=== PATIENT | male | born 1975 | race Caucasian/White ===

== ENCOUNTER 2019-10-02 10:44 | Emergency (ER) | payer BC, SELFPAY ==
[2019-10-02 11:11] VITALS: BP 126/81; PULSE 73; RESP 18; TEMP 37.3; O2SAT 99
--- NOTE | 2019-10-02 11:41 | ED.URI ---
HPI - URI/Sore Throat General Chief Complaint: Upper Respiratory Infection Stated Complaint: nasal drainage/cough Time Seen by Provider: 10/02/19 11:48 Source: patient and family History of Present Illness HPI Narrative: Patient presents with a two-week history of sinus congestion and pressure. Patient states 1 week ago he started with a cough dry productive cough. Patient denies any shortness of breath no chest pain. Patient is a pack-a-day smoker for many years. Patient does not take anything [id number] for his symptoms. Patient does request a work note he took off today to come to the doctor. MD elicited complaint: cough, nasal congestion and sinus pain Related Data Allergies Allergy/AdvReac Type Severity Reaction Status Date / Time No Known Allergies Allergy Verified 10/02/19 11:29 Review of Systems Review of Systems: Narrative: CONSTITUTIONAL: Denies chills, or sweats. Reports fever and generalized body aches EYES: Denies visual changes, redness, or discharge. ENT: Denies otalgia. Reports nasal congestion runny nose and sore throat CARDIOVASCULAR: Denies chest pain, palpitations, or edema. RESPIRATORY: Denies dyspnea. Reports occasional cough GASTROINTESTINAL: Denies abdominal pain, nausea, vomiting, or diarrhea. GENITOURINARY: Denies dysuria or hematuria. SKIN: Denies rash or itching. MUSCULOSKELETAL: Denies back pain, joint pain, or myalgia. Reports generalized body aches NEUROLOGIC: Denies headache, numbness, or weakness. PSYCHIATRIC: Denies anxiety or depression. Exam Narrative: Exam Narrative: The patient is a well-developed, well-nourished in no acute distress. SKIN: Skin is warm and dry without erythema, swelling or exudate. There is good turgor. No tenting. HEAD: Atraumatic. Normocephalic. No temporal or scalp tenderness. EYES: Moist and bright. Sclera and conjunctivae normal. No discharge. PERRLA. Extraocular motions intact. Gross visual acuity intact. EARS: Pinna is normal shape and contour. Clear external auditory canals. TM pearly mcclure with good cone of light, no erythema or suppuration. Bilateral cerumen noted no gross hearing deficit. NOSE: pink, moist mucosa with good air movement. Clear rhinorrhea without nasal flaring. Septum midline. Moderate maxillary sinus pressure mild postnasal drainage Mouth: moist mucous membranes. THROAT; mild erythema noted to posterior oropharynx with moderate postnasal drainage. Without exudate or ulceration.. Uvula midline. Normal movement of soft palate. NECK: Supple and nontender with full range of motion without discomfort. No meningeal signs. LUNGS: Equal and bilateral breath sounds without wheezes, rales or rhonchi. CHEST: The chest wall is without retractions or use of accessory muscles. HEART: Has a regular rate and rhythm without murmur, gallops, click or rub. ABDOMEN: Soft, nontender with positive active bowel sounds. No rebound tenderness. EXTREMITIES: Without cyanosis, clubbing or edema. Equal 2+ distal pulses and 2 second capillary refill noted. NEUROLOGIC: alert, active, . The patient moves all extremities with normal muscle strength. Normal muscle tone is noted. Normal coordination is noted. NO focal neurological findings noted. Course Vital Signs Vital signs: Vital Signs Temperature 37.3 C 10/02/19 11:11 Pulse Rate 73 10/02/19 11:11 Respiratory Rate 18 10/02/19 11:11 Blood Pressure 126/81 10/02/19 11:11 Pulse Oximetry 99 10/02/19 11:11 Temperature 37.3 C 10/02/19 11:11 Pulse Rate 73 10/02/19 11:11 Respiratory Rate 18 10/02/19 11:11 Blood Pressure 126/81 10/02/19 11:11 Pulse Oximetry 99 10/02/19 11:11 Addressed elevated BP today. Today's blood pressure higher than recommended range. Discussed importance of follow -up with PCP and possible rat exterminator effects/cardiovascular events related to HTN. Currently patient denies headache, dizziness, vision changes, CP or shortness of breath. MDM - URI/Sore Throat Differential
== END 2019-10-02 11:53 | disposition home or self-care (01) ==
PROVIDERS: Emergency Provider Nurse Practitioner Family
DX: J40 Bronchitis, not specified as acute or chronic (principal); J32.9 Chronic sinusitis, unspecified
CPT/HCPCS: 99213; G0463

== ENCOUNTER 2019-10-04 13:56 | Emergency (ER) | payer BC, SELFPAY ==
[2019-10-04 14:13] VITALS: BP 140/88; PULSE 83; RESP 16; TEMP 37.4; O2SAT 99
--- NOTE | 2019-10-04 15:15 | ED.URI ---
HPI - URI/Sore Throat General Chief Complaint: Upper Respiratory Infection Stated Complaint: Cough/Sore Throat Time Seen by Provider: 10/04/19 15:15 Source: patient and RN notes reviewed Mode of arrival: ambulatory Limitations: no limitations History of Present Illness HPI Narrative: 44-year-old male who presents to [facility] accompanied by son with request to be screened for influenza. Patient states that mother of child was just recently diagnosed with flu. Patient states he was seen here 3 days ago and diagnosed with bronchitis and sinusitis taking prescribed medications as ordered, states some improvement in his symptoms. Patient states that he still has cough but breathing has improved with no wheezing noted upon auscultation, SAO2 99% on room air. Patient states that his sinus congestion and drainage has also improved with low grade fever noted. Did not have flu vaccine this season. MD elicited complaint: cough and rhinorrhea Pertinent past history: other (bronchitis) Onset (ago): week(s) (initially symptoms 2 weeks ago, cough 1 week ago, seen 3 dys ago) Consistency: improved Severity: mild Description of mucous: clear Able to tolerate fluids by mouth: Yes Exacerbating factors: nothing Relieving factors: other (taking antibiotic, inhaler and steroids) Context: sick contacts Associated symptoms: rhinorrhea, nasal congestion, cough and other (wheezing has decreased) Treatments prior to arrival: antibiotics and other (steroids and inhalers) Related Data Home Medications Medication Instructions Recorded Confirmed albuterol sulfate 2 puff INHALATION QID 10/04/19 10/04/19 prednisone 40 mg PO DAILY 10/04/19 10/04/19 Allergies Allergy/AdvReac Type Severity Reaction Status Date / Time No Known Allergies Allergy Verified 10/04/19 14:31 Review of Systems Review of Systems: Narrative: CONSTITUTIONAL: Low grade temperature, no chills, or sweats. EYES: Denies visual changes, redness, or discharge. ENT: positive rhinorrhea, congestion, no sore throat, or otalgia. CARDIOVASCULAR: Denies chest pain, palpitations, or edema. RESPIRATORY: Positive cough denies dyspnea presently; wheezing has decreased since started on inhaler, antibiotics, and steroids. GASTROINTESTINAL: Denies abdominal pain, nausea, vomiting, or diarrhea. GENITOURINARY: Denies dysuria or hematuria. SKIN: Denies rash or itching. MUSCULOSKELETAL: Denies back pain, joint pain, or myalgia. NEUROLOGIC: Denies headache, numbness, or weakness. PSYCHIATRIC: Denies anxiety or depression. All systems reviewed & are unremarkable except as noted in HPI and below PMFSH Past Medical History Medical History (Updated 10/05/19 @ 00:00 by Keyla Wilcox) Bronchitis Left hand fracture Sinusitis Surgical History Surgical History (Updated 10/04/19 @ 16:00 by Dariela Chao NP) History of placement of ear tubes Social History Social History (Updated 10/04/19 @ 15:59 by Dariela Chao NP) Smoking packs per day: 1 Smoking cigarettes per day: 20.0 Years smoked: 25 Smoking pack-years: 25.00 Smoking status: Current every day smoker Tobacco type: cigarettes Living arrangements: with family Gender identity (if verbalized by the patient): Male Comments At time of signature agree with nursing documentation of medical and social history. There is no relevant family history pertinent to preseting complaint. Exam Narrative: Exam Narrative: GENERAL: Well-appearing, well-nourished, and in no acute distress. HEAD: Normocephalic, atraumatic. EYES: PERRLA and EOMI. ENT: Nares red, clear rhinorrhea or epistaxis. Mucous membranes moist.TM's normal with good light reflex, throat pink NECK: Supple.no lymphadenopathy CHEST: Clear to auscultation. No respiratory distress.SAO2 99% on room air HEART: Regular rate and rhythm. No murmur heard. Normal peripheral pulses. ABDOMEN: Soft, non tender, non distended, normal active bowel sounds. EXTREMITIES: Normal range of
== END 2019-10-04 15:36 | disposition home or self-care (01) ==
PROVIDERS: Emergency Provider Registered Nurse
DX: J40 Bronchitis, not specified as acute or chronic (principal); F17.210 Nicotine dependence, cigarettes, uncomplicated
CPT/HCPCS: 87804; 99212; G0463

== ENCOUNTER 2020-10-08 16:37 | Emergency (ER) | payer OTHER, SELFPAY ==
[2020-10-08 16:42] VITALS: BP 132/72; PULSE 88; RESP 16; TEMP 37.5; O2SAT 99
--- NOTE | 2020-10-08 17:13 | ED.ABDPAIN ---
HPI - Abdominal Pain General Chief Complaint: Abdominal Pain Stated Complaint: stomach problems diahhrea Time Seen by Provider: 10/08/20 17:14 Source: patient and RN notes reviewed Mode of arrival: ambulatory Limitations: no limitations History of Present Illness HPI narrative: 45-year-old male presents with complaints of diffuse abdominal pain and diarrhea for 1 day. Ender reports on 10/07/20 believes he at a half cooked pizza from a local store causing his symptoms, symptoms subside later in the am of 10/08/20 after the start of his shift. Ender reports he called off work and needs a note to return. Increased fluids with relief. Denies nausea, vomiting, or abdominal pain currently. Exacerbating factors consist of eating and drinking. LBM approximately 10:00 am liquid stool without blood. Denies fever. Denies headache, dizziness, back pain, dysuria, and blood in stool. Tolerating po intake well. Remains active. The patient reports he have not been diagnosed with COVID-19. The patient reports he is not waiting for the results of a COVID-19 lab test. The patient reports he do not have chills, weakness, or fatigue. The patient reports he do not have a new or worsening cough or shortness of breath. Denies chest pain. The patient reports he do not have any rhinorrhea, congestion, loss of taste or smell, and sore throat. Denies recent traveling. Denies concerns for COVID-19 or exposures been home with limited outdoor exposure except for essential household needs, work, and return home. At this time, patient is not suspected of having COVID-19. Some parts of this dictation were generated by voice recognition software and may contain typographical and/or grammatical inaccuracies. Related Data Home Medications Medication Instructions Recorded Confirmed No Home Medications 10/08/20 10/08/20 Allergies Allergy/AdvReac Type Severity Reaction Status Date / Time No Known Allergies Allergy Verified 10/08/20 16:54 Review of Systems Review of Systems: Narrative: CONSTITUTIONAL: Denies fever, chills, sweats. EYES: Denies visual changes, redness, discharge. ENT: Denies rhinorrhea, congestion, sore throat, otalgia. CARDIOVASCULAR: Denies chest pain, palpitations, edema. RESPIRATORY: Denies dyspnea, wheezing, cough. GASTROINTESTINAL: Denies vomiting, nausea, and decrease appetite. Complains of watery diarrhea, diffused abdominal pain-subsided. GENITOURINARY: Denies dysuria, hematuria, abnormal discharge. SKIN: Denies rash or itching. MUSCULOSKELETAL: Denies acute back pain, joint pain, or myalgia. NEUROLOGIC: Denies numbness or focal weakness. PSYCHIATRIC: Denies anxiety or depression. All systems reviewed & are unremarkable except as noted in HPI and below. [facility] Past Medical History Medical History (Updated 10/09/20 @ 00:00 by Keyla Wilcox) Bronchitis Kidney stones Left hand fracture Lung abnormality punctured lung due to fracture ribs Sinusitis Surgical History Surgical History (Updated 10/08/20 @ 17:30 by STEVEN Smith) History of placement of ear tubes History of tonsillectomy Family History Family History (Updated 10/08/20 @ 17:31 by STEVEN Smith) Father Heart disease Mother Liver cancer Social History Social History (Updated 10/08/20 @ 17:32 by STEVEN Smith) Smoking packs per day: 1 Smoking cigarettes per day: 20.0 Years smoked: 27 Smoking pack-years: 27.00 Smoking status: Current every day smoker Tobacco type: cigarettes Second hand tobacco smoke exposure: Yes (spouse) Alcohol intake: current Substance use: current Substance use type: marijuana Living arrangements: with family Occupation/Education: occupation Gender identity (if verbalized by the patient): Male Sexual Orientation (if Verbalized by the Patient): Straight or Heterosexual Comments At time of signature, I have reviewed and agree with keisha
== END 2020-10-08 17:28 | disposition home or self-care (01) ==
PROVIDERS: Emergency Provider Nurse Practitioner Family
DX: K52.9 Noninfective gastroenteritis and colitis, unspecified (principal); F17.210 Nicotine dependence, cigarettes, uncomplicated
CPT/HCPCS: 99211; G0463

== ENCOUNTER 2021-01-07 12:28 | Emergency (ER) | payer OTHER, SELFPAY ==
--- NOTE | ~2021-01-07 | XR_ITS ---
EXAMINATION: XR chest 2V 01/07/2021 12:57 INDICATION: Chest pain for 2 days PROCEDURE: 2 view chest COMPARISON: 02/27/2019 FINDINGS: The lungs are clear. The lungs are hyperinflated which is consistent with, but not diagnost ic of chronic obstructive pulmonary disease. The cardiomediastinal silhouette is within normal limit s. There are no pleural effusions. There is no pneumothorax suspected. IMPRESSION: 1: NO ACUTE CARDIOPULMONARY DISEASE. Reviewed, dictated and finalized at location A.
[2021-01-07 12:35] VITALS: BP 135/95; PULSE 90; RESP 20; TEMP 36.9; O2SAT 100
--- NOTE | 2021-01-07 12:35 | ED.URI ---
HPI - URI/Sore Throat General Chief Complaint: Chest Pain Stated Complaint: Chest pain,shortness of breathe Time Seen by Provider: 01/07/21 12:35 Source: patient and RN notes reviewed History of Present Illness HPI Narrative: Patient is a 45-year-old male who presents the urgent care with complaints of right-sided chest pain for 2 days. Patient states that his shortness of breath on exertion has been ongoing for approximately 2 to 3 years and he has not followed up with a primary care doctor. Patient states that the same exact episode happened last year when his and him got into an argument and he was under a lot of stress at work. Patient states that he has been arguing with his for the last 4 days and now the chest pain is back . Patient has not taken anything for his symptoms. States that 1 year ago when this episode happened he went to the emergency room and was evaluated overnight without any significant findings. Patient states that the doctor told him it was stress and anxiety and patient was not given any medications. Patient denies of any vision changes, radiation of the chest pain, headache, palpitations. Denies of any recent fevers or productive cough. No other acute complaints. No acute distress noted. Patient aware of the plan of care. Some parts of this dictation were generated by voice recognition software and may contain typographical and/or grammatical inaccuracies. Related Data Home Medications Medication Instructions Recorded Confirmed No Home Medications 10/08/20 10/08/20 Allergies Allergy/AdvReac Type Severity Reaction Status Date / Time No Known Allergies Allergy Verified 01/07/21 12:53 Review of Systems Review of Systems: Narrative: CONSTITUTIONAL: Denies fever, chills, or sweats. EYES: Denies visual changes, redness, or discharge. ENT: Denies rhinorrhea, congestion, sore throat, or otalgia. CARDIOVASCULAR: Reports of right-sided nonradiating chest pain RESPIRATORY: Denies cough or dyspnea. GASTROINTESTINAL: Denies abdominal pain, nausea, vomiting, or diarrhea. GENITOURINARY: Denies dysuria or hematuria. SKIN: Denies rash or itching. MUSCULOSKELETAL: Denies back pain, joint pain, or myalgia. NEUROLOGIC: Denies headache, numbness, or weakness. All other systems reviewed are negative, except as documented in HPI. [facility] Past Medical History Medical History (Updated 01/07/21 @ 13:26 by STEVEN Hendricks) Bronchitis Kidney stones Left hand fracture Lung abnormality punctured lung due to fracture ribs Sinusitis Surgical History Surgical History (Updated 10/08/20 @ 17:30 by STEVEN Smith) History of placement of ear tubes History of tonsillectomy Family History Family History (Updated 10/08/20 @ 17:31 by STEVEN Smith) Father Heart disease Mother Liver cancer Social History Social History (Updated 10/08/20 @ 17:32 by STEVEN Smith) Smoking packs per day: 1 Smoking cigarettes per day: 20.0 Years smoked: 27 Smoking pack-years: 27.00 Smoking status: Current every day smoker Tobacco type: cigarettes Second hand tobacco smoke exposure: Yes (spouse) Alcohol intake: current Substance use: current Substance use type: marijuana Gender identity (if verbalized by the patient): Male Comments At the time of my signature, I reviewed and agree with the nursing past medical, surgical, social, and family history. There is no relevant family history pertinent to the patient complaint. Exam Narrative: Exam Narrative: GENERAL: This is a well-nourished, well-developed patient, in no apparent distress. HEAD: normocephalic, atraumatic. EYES: PERRL. Sclera clear/white. Vision is grossly intact. EARS: External ears normal, auditory canals clear and without drainage, TMs normal without perforation. Hearing grossly intact. NOSE: External nose normal with no obvious nasal discharge, nares without rednes
--- NOTE | 2021-01-07 12:49 | ECG_ITS ---
Measurements Intervals [place] Rate: 71 P: 69 NH: 161 QRS: 35 QRSD: 80 T: 41 QT: 360 QTc: 392 Interpretive Statements SINUS RHYTHM NORMAL ECG Electronically Signed On 01-07-2021 13:15:06 CDT by Kareem Horton D.O.
== END 2021-01-07 13:30 | disposition left against medical advice (07) ==
PROVIDERS: Emergency Provider Nurse Practitioner Family
DX: R07.9 Chest pain, unspecified (principal); F17.210 Nicotine dependence, cigarettes, uncomplicated
CPT/HCPCS: 71046; 93005; 99213; G0463

== ENCOUNTER 2021-04-12 10:42 | Emergency (ER) | payer OTHER, SELFPAY ==
[2021-04-12 10:48] VITALS: BP 125/82; PULSE 75; RESP 20; TEMP 36.8; O2SAT 100
--- NOTE | 2021-04-12 11:35 | ED.URI ---
HPI - URI/Sore Throat General Chief Complaint: Upper Respiratory Infection Stated Complaint: congestion drainage Time Seen by Provider: 04/12/21 11:27 Source: patient and RN notes reviewed Mode of arrival: ambulatory Limitations: no limitations History of Present Illness HPI Narrative: Patient presents today complaining of cough, sore throat, rhinorrhea, postnasal drainage for 1-1/2 days. Denies fever or shortness of breath. He has taken 1 dose of Mucinex without relief. States his employer sent him here for rapid COVID-19 test so he can return to work. MD elicited complaint: cough and sore throat Related Data Home Medications Medication Instructions Recorded Confirmed No Home Medications 10/08/20 04/12/21 Allergies Allergy/AdvReac Type Severity Reaction Status Date / Time No Known Allergies Allergy Verified 04/12/21 11:07 Review of Systems Review of Systems: CONSTITUTIONAL: Denies body aches, fever, chills, or sweats. EYES: Denies visual changes, redness, or discharge. ENT: Denies congestion,or otalgia.+ Sore throat, rhinorrhea, postnasal drip CARDIOVASCULAR: Denies chest pain, palpitations, or edema. RESPIRATORY: Denies dyspnea.+ Cough GASTROINTESTINAL: Denies abdominal pain, nausea, vomiting, or diarrhea. GENITOURINARY: Denies dysuria or hematuria. SKIN: Denies rash, itching, or wounds. MUSCULOSKELETAL: Denies back pain, joint pain, or myalgia. NEUROLOGIC: Denies headache, numbness, tingling, or weakness. PSYCH: Denies depression or anxiety. PENDING SALE TO [facility] Past Medical History Medical History Bronchitis Kidney stones Left hand fracture Lung abnormality punctured lung due to fracture ribs Sinusitis Surgical History Surgical History History of placement of ear tubes History of tonsillectomy Family History Family History Father Heart disease Mother Liver cancer Social History Social History Smoking packs per day: 1 Smoking cigarettes per day: 20.0 Years smoked: 27 Smoking pack-years: 27.00 Smoking status: Current every day smoker Tobacco type: cigarettes Second hand tobacco smoke exposure: Yes (spouse) Alcohol intake: current Substance use: current Substance use type: marijuana Gender identity (if verbalized by the patient): Male Sexual Orientation (if Verbalized by the Patient): Straight or Heterosexual Comments At time of signature, I have reviewed and agree with nursing past medical, surgical, social and family history unless otherwise noted. Please see nursing chart for further information. There is no relevant family history pertinent to the presenting complaint Exam Narrative: GENERAL: Mildly ill-appearing, well-nourished, and in no acute distress. HEAD: Normocephalic, atraumatic. EYES: EOMI. No redness or drainage. Conjunctivae normal. ENT: Mucous membranes pink and moist. Nares congested with rhinorrhea. TMs normal bilaterally. Throat normal. Uvula midline. NECK: Normal AROM. Supple. No lymphadenopathy. CHEST: No respiratory distress. Clear to auscultation. HEART: Regular rate and rhythm. No murmur appreciated. Normal peripheral pulses. EXTREMITIES: Normal range of motion. No edema. SKIN: Warm, dry, no rash. Capillary refill normal. Normal skin turgor. NEURO: No focal deficits. Alert and oriented x3. Gait steady. PSYCH: Normal affect. No signs of depression or anxiety. Course Course Emergency Course: Discussed with patient that he has not had symptoms for long enough for the rapid COVID-19 test to be accurate, so I would not be ordering that test for him today. I will order PCR test for him. Vital Signs Vital signs: Vital Signs Temperature 98.3 F 04/12/21 10:48 Pulse Rate 75 04/12/21 10:4
[2021-04-13 18:19] LABS: SARS-CoV-2 RNA PCR Negative
== END 2021-04-12 11:49 | disposition home or self-care (01) ==
PROVIDERS: Emergency Provider Nurse Practitioner
DX: J06.9 Acute upper respiratory infection, unspecified (principal); F17.210 Nicotine dependence, cigarettes, uncomplicated; Z20.822 Contact with and (suspected) exposure to COVID-19
CPT/HCPCS: 87081; 87880; 99213; C9803; G0463; U0003; U0005

== ENCOUNTER 2021-04-27 16:12 | Emergency (ER) | payer OTHER, SELFPAY ==
[2021-04-27 16:28] VITALS: BP 135/78; PULSE 77; RESP 14; TEMP 36.7; O2SAT 100
--- NOTE | 2021-04-27 17:55 | ED.SKABFB ---
HPI - Skin/Abscess/Foreign Bdy General Chief complaint: Skin/Abscess/Foreign Body Stated complaint: Rash Time Seen by Provider: 04/27/21 17:48 Source: patient and RN notes reviewed Mode of arrival: ambulatory Limitations: no limitations History of Present Illness HPI narrative: Patient presents today complaining of a rash to the dorsum of right hand and bilateral forearms x1 week. Patient states it itches profusely and has been spreading. States the area started out as a small pustule, ruptured with clear fluid then turned into a scab. He has not tried any [id number] interventions prior to arrival. MD complaint: rash Related Data Allergies Allergy/AdvReac Type Severity Reaction Status Date / Time No Known Allergies Allergy Verified 04/27/21 17:10 Review of Systems Review of Systems: CONSTITUTIONAL: Denies body aches, fever, chills, or sweats. EYES: Denies visual changes, redness, or discharge. ENT: Denies rhinorrhea, congestion, sore throat, or otalgia. CARDIOVASCULAR: Denies chest pain, palpitations, or edema. RESPIRATORY: Denies cough or dyspnea. GASTROINTESTINAL: Denies abdominal pain, nausea, vomiting, or diarrhea. GENITOURINARY: Denies dysuria or hematuria. SKIN: Denies wounds.+ Pruritic rash MUSCULOSKELETAL: Denies back pain, joint pain, or myalgia. NEUROLOGIC: Denies headache, numbness, tingling, or weakness. PSYCH: Denies depression or anxiety. [facility] Past Medical History Medical History Bronchitis Kidney stones Left hand fracture Lung abnormality punctured lung due to fracture ribs Sinusitis Surgical History Surgical History History of placement of ear tubes History of tonsillectomy Family History Family History Father Heart disease Mother Liver cancer Social History Social History Smoking packs per day: 1 Smoking cigarettes per day: 20.0 Years smoked: 27 Smoking pack-years: 27.00 Smoking status: Current every day smoker Tobacco type: cigarettes Second hand tobacco smoke exposure: Yes (spouse) Alcohol intake: current Substance use: current Substance use type: marijuana Gender identity (if verbalized by the patient): Male Sexual Orientation (if Verbalized by the Patient): Straight or Heterosexual Comments At time of signature, I have reviewed and agree with nursing past medical, surgical, social and family history unless otherwise noted. Please see nursing chart for further information. There is no relevant family history pertinent to the presenting complaint Exam Narrative: GENERAL: Well-appearing, well-nourished, and in no acute distress. HEAD: Normocephalic, atraumatic. EYES: EOMI. No redness or drainage. Conjunctivae normal. ENT: Mucous membranes pink and moist. NECK: Normal AROM. CHEST: No respiratory distress. EXTREMITIES: Normal range of motion. No edema. SKIN: Warm, dry. Capillary refill normal. Normal skin turgor. Scabbed papules covering the dorsum of the right hand and extending in a scattered distribution to the bilateral forearms. Scant yellow clear drainage from a few scabs to the right hand. NEURO: No focal deficits. Alert and oriented x3. Gait steady. PSYCH: Normal affect. No signs of depression or anxiety. Course Vital Signs Vital signs: Vital Signs Temperature 98.1 F 04/27/21 16:28 Pulse Rate 77 04/27/21 16:28 Respiratory Rate 14 04/27/21 16:28 Blood Pressure 135/78 04/27/21 16:28 Pulse Oximetry 100 04/27/21 16:28 Temperature 98.1 F 04/27/21 16:28 Pulse Rate 77 04/27/21 16:28 Respiratory Rate 14 04/27/21 16:28 Blood Pressure 135/78 04/27/21 16:28 Pulse Oximetry 100 04/27/21 16:28 Reviewed. Pt has been instructed to follow u
== END 2021-04-27 18:07 | disposition home or self-care (01) ==
PROVIDERS: Emergency Provider Nurse Practitioner
DX: L01.00 Impetigo, unspecified (principal); F17.210 Nicotine dependence, cigarettes, uncomplicated
CPT/HCPCS: 99213; G0463

== ENCOUNTER 2021-07-12 09:45 | Emergency (ER) | payer OTHER, SELFPAY ==
[2021-07-12 09:50] VITALS: BP 128/81; PULSE 73; RESP 18; TEMP 37.2; O2SAT 100
--- NOTE | 2021-07-12 10:03 | ED.BACK ---
HPI - Back Pain/Injury General Chief Complaint: Urogenital-Male Stated Complaint: Back Pain Time Seen by Provider: 07/12/21 10:03 Source: patient Mode of arrival: ambulatory Limitations: no limitations History of Present Illness HPI Narrative: Ender Johnson is a 46 yo male with no PMH [facility] left-sided flank discomfort he has-told nurse that it is an 8 out of 10. States that he has the pain when he stands or sits but goes away when he lays flat. Related Data Allergies Allergy/AdvReac Type Severity Reaction Status Date / Time No Known Allergies Allergy Verified 07/12/21 10:03 Review of Systems Review of Systems: CONSTITUTIONAL: Denies fever, chills, sweats. EYES: Denies visual changes, redness, discharge. ENT: Denies rhinorrhea, congestion, sore throat, otalgia. CARDIOVASCULAR: Denies chest pain, palpitations, edema. RESPIRATORY: Denies dyspnea, wheezing, cough GASTROINTESTINAL: Denies abdominal pain, nausea, vomiting, diarrhea. GENITOURINARY: Denies dysuria, hematuria, abnormal discharge SKIN: Denies rash or itching. NEUROLOGIC: Denies numbness, or focal weakness. PSYCHIATRIC: Denies anxiety or depression. Left flank discomfort, also painful with twisting to left PMFSH Past Medical History Medical History Bronchitis Kidney stones Left hand fracture Lung abnormality punctured lung due to fracture ribs Sinusitis Surgical History Surgical History History of placement of ear tubes History of tonsillectomy Family History Family History Father Heart disease Mother Liver cancer Social History Social History Smoking packs per day: 1 Smoking cigarettes per day: 20.0 Years smoked: 27 Smoking pack-years: 27.00 Smoking status: Current every day smoker Tobacco type: cigarettes Second hand tobacco smoke exposure: Yes (spouse) Alcohol intake: current Substance use: current Substance use type: marijuana Gender identity (if verbalized by the patient): Male Sexual Orientation (if Verbalized by the Patient): Straight or Heterosexual Comments At time of signature, I agree with nursing past medical, surgical, social and family history. There is no relevant family history pertinent to the presenting complaint. Exam Narrative: GENERAL: This is a well-nourished, well-developed patient, in mild distress. HEAD: normocephalic, atraumatic. EYES: Sclera clear/white. Vision is grossly intact. EARS: External ears normal, Hearing grossly intact. NOSE: External nose normal without nasal discharge, nares without redness, no rhinorrhea. THROAT: Mucous membranes moist, NECK: Neck supple, CARDIOVASCULAR: Regular rate and rhythm without murmurs, gallops, or rubs. RESPIRATORY: Clear to auscultation. Breath sounds equal bilaterally. No wheezes, rales, or rhonchi. GASTROINTESTINAL: Abdomen soft, and twisting to the left SKIN: warm, intact with no suspicious lesions or rash, good texture and turgor. NEURO: awake, alert, and oriented to person, place and time. There were no obvious focal neurologic abnormalities. Steady gait EXTREMITIES: Normal range of motion. BACK: Nontender without deformity Course Course Emergency Course: Patient comes with complaints of left-sided flank pain the right side runs a 10 particularly when standing or sitting Discussed going to his primary care physician-started on muscle relaxant and Cipro Vital Signs Vital signs: Vital Signs Temperature 98.9 F 07/12/21 09:50 Pulse Rate 73 07/12/21 09:50 Respiratory Rate 18 07/12/21 09:50 Blood Pressure 128/81 07/12/21 09:50 Pulse Oximetry 100 07/12/21 09:50 Temperature 98.9 F 07/12/21 09:50 Pulse Rate 73 07/12/21 09:50 Respiratory Rate 18
== END 2021-07-12 10:35 | disposition home or self-care (01) ==
PROVIDERS: Emergency Provider Nurse Practitioner
DX: R10.9 Unspecified abdominal pain (principal); F17.210 Nicotine dependence, cigarettes, uncomplicated
CPT/HCPCS: 81003; 99213; G0463

== ENCOUNTER 2021-09-30 11:21 | Emergency (ER) | payer OTHER, SELFPAY ==
--- NOTE | ~2021-09-30 | XR_ITS ---
EXAMINATION: XR chest 2V DATE: 09/30/2021 11:51 INDICATION: Chest pain TECHNIQUE: PA and lateral views of the chest are obtained. COMPARISON: 01/07/2021 FINDINGS: The lungs are free of acute opacities. There is no pleural effusion or pneumothorax. The ca rdiomediastinal silhouette is normal. There is moderate thoracic spondylosis. IMPRESSION: 1. No acute cardiopulmonary abnormality. Reviewed, dictated and finalized at location B. K OPERATOR
--- NOTE | 2021-09-30 11:24 | ECG_ITS ---
Measurements Intervals [place] Rate: 67 P: 64 PA: 142 QRS: 53 QRSD: 93 T: 46 QT: 354 QTc: 375 Interpretive Statements SINUS RHYTHM NORMAL ECG COMPARED TO ECG 01/07/2021 12:49:29 NO SIGNIFICANT CHANGES Electronically Signed On 09-30-2021 13:40:36 RESERVE OFFICER by Kaushal Dillard M.D.
[2021-09-30 11:39] VITALS: BP 148/100; PULSE 73; RESP 20; TEMP 36.7; O2SAT 100
[2021-09-30 11:43] LABS: Basophils Absolute Auto 0.07 K/mm3 (0.00-0.10); Basophils Percent Auto 0.8 % (0.0-1.0); Eosinophils Absolute Auto 0.05 K/mm3 (0.02-0.50); Eosinophils Percent Auto 0.6 % (1.0-6.0); Hematocrit 45.7 % (40.0-54.0); Hemoglobin 15.6 g/dL (14.0-18.0); Immature Granulocyte Absolute 0.03 K/mm3 (0.00-0.00); Immature Granulocyte Percent A 0.4 % (0.0-0.0); Lymphocytes Absolute Auto 1.66 K/mm3 (1.10-4.50); Lymphocytes Percent Auto 19.6 % (18.0-42.0); Mean Corpuscular HGB Conc 34.1 g/dL (32.0-36.0); Mean Corpuscular Hemoglobin 33.7 pg (27.0-31.0); Mean Corpuscular Volume 98.7 fL (78.0-102.0); Mean Platelet Volume 10.1 fl (8.7-11.0); Monocytes Absolute Auto 0.83 K/mm3 (0.10-0.90); Monocytes Percent Auto 9.8 % (2.0-11.0); Neutrophils Absolute Auto 5.8 K/mm3 (1.7-7.2); Neutrophils Percent Auto 68.8 % (50.0-70.0); Platelet Count Result 197 K/mm3 (150-420); Red Blood Count 4.63 M/mm3 (4.70-6.10); Red Cell Distribution Width 12.6 % (11.6-14.4); White Blood Count 8.5 K/mm3 (4.8-10.8)
--- NOTE | 2021-09-30 11:43 | ED.CHESTPAIN ---
HPI - Chest Pain General Chief Complaint: Chest Pain Stated Complaint: chest pain, palpitations Time Seen by Provider: 09/30/21 11:23 Source: patient Mode of arrival: ambulatory Limitations: no limitations History of Present Illness HPI narrative: this is a 46-year-old gentleman that presents with chest tightness that started earlier today, the patient also stated that he was having palpitations, there is no radiation of his pain no shortness of breath no diaphoresis no nausea vomiting no history of heart disease no family history of heart disease. Patient is a smoker, and this episode has happened in the past and he believes it is situational has been having marital issues. Saw his primary care physician had him set up to see Cardiology and started him on Zoloft, he took 4 doses of Zoloft and discontinued the medication. Currently patient appears comfortable his vital signs are stable. MD complaint: chest heaviness Pertinent past history: other ( history of anxiety) Onset (ago): hour(s) Timing of current episode: episodic and other ( situational) Prior episodes: Yes Pain location: substernal Pain radiation: none Severity: mild Quality: tightness Relieving factors: nothing Exacerbating factors: other ( stress) Related Data Allergies Allergy/AdvReac Type Severity Reaction Status Date / Time No Known Allergies Allergy Verified 09/30/21 11:47 Review of Systems Review of Systems: All systems reviewed & are unremarkable except as noted in HPI and below PMFSH Past Medical History Medical History Bronchitis Kidney stones Left hand fracture Lung abnormality punctured lung due to fracture ribs Sinusitis Surgical History Surgical History History of placement of ear tubes History of tonsillectomy Family History Family History Father Heart disease Mother Liver cancer Social History Social History Smoking packs per day: 1 Smoking cigarettes per day: 20.0 Years smoked: 27 Smoking pack-years: 27.00 Smoking status: Current every day smoker Tobacco type: cigarettes Second hand tobacco smoke exposure: Yes (spouse) Alcohol intake: current Substance use: current Substance use type: marijuana Gender identity (if verbalized by the patient): Male Sexual Orientation (if Verbalized by the Patient): Straight or Heterosexual Exam Const: General: no acute distress Orientation/consciousness: patient oriented x3 HENMT: Head: normal to inspection Eyes: Conjunctivae: conjunctivae normal Pupils: Equal, round and reactive pupils present Neck: Neck: normal visual inspection, no lymphadenopathy and no meningeal signs Chest: Chest palpation & inspection: normal inspection of the chest Resp: Effort & Inspection: normal respiratory effort Auscultation: clear to auscultation bilaterally Cardio: Rate: regular rate Rhythm: regular rhythm GI: Auscultation: normal bowel sounds : Testes: Testes normal Back/Spine/Pelvis: Back: no CVA tenderness Skin: General skin exam: normal color Rashes: no rashes Neuro: General: patient oriented x3 and moves all extremities Extrem: General: normal to inspection and no pedal edema Psych: Appearance: grossly normal Mental Status: mental status grossly normal Affect: Anxious affect present Attitude: cooperative Course Course Emergency Course: EKG reviewed, patient had a chest x-ray that was reviewed with patient as well as blood work, the patient received a dose of 0.5mg PO Xanax. MDM - Chest Pain Lab Data Result diagrams: 09/30/21 11:37 09/30/21 11:37 Labs: Lab Results 09/30/21 09/30/21 09/30/21 Range/Units 11:37 11:37 11:37 WBC Pending RBC Pending Hgb Pending
[2021-09-30] MEDS: ALPRAZolam (*CRX) 0.5 MG TABLET PO (11:52)
[2021-09-30 11:56] LABS: D Dimer 0.34 mg/L (0.19-0.50); Partial Thromboplastin Time 26.3 SEC (23.90-30.70); Prothrombin Time 10.4 Seconds (9.50-12.10)
[2021-09-30 12:05] LABS: Alanine Aminotransferase 10 U/L (16-63); Albumin Level 3.8 g/dL (3.4-5.0); Alkaline Phosphatase 81 U/L (46-116); Anion Gap 10 mmol/L (8-16); Aspartate Amino Transferase 12 U/L (15-37); Bilirubin,Total 0.3 mg/dL (0.00-1.00); Blood Urea Nitrogen 18 mg/dL (7-18); Calcium 8.7 mg/dL (8.5-10.1); Carbon Dioxide 26 mmol/L (21-32); Chloride 104 mmol/L (98-108); Estimated CRCL calculation 86 ml/min; Estimated Glomerular Filt Rate > 60; Glucose 109 mg/dL (70-99); Lipase 64 U/L (73-393); NT Pro B Type Natriuretic Pept 45 pg/mL (0-125); Osmolality Calculated 292 mOsm/kg (285-295); Sodium 140 mmol/L (136-145); Troponin I 7.4 ng/L (0.00-60.4)
[2021-09-30 12:35] VITALS: BP 112/91; PULSE 76; RESP 20; TEMP 36.8; O2SAT 97
== END 2021-09-30 12:37 | disposition home or self-care (01) ==
PROVIDERS: Emergency Provider Emergency Medicine
DX: R07.89 Other chest pain (principal); F41.9 Anxiety disorder, unspecified
CPT/HCPCS: 36415; 71046; 80053; 83690; 83880; 84484; 85025; 85380; 85610; 85730; 93005; 99284; A9270

== ENCOUNTER 2021-11-24 11:34 | Emergency (ER) | payer OTHER, SELFPAY ==
[2021-11-24 11:42] VITALS: BP 136/68; PULSE 64; RESP 14; TEMP 37.1; O2SAT 99
[2021-11-24 11:46] VITALS: BP 136/68; PULSE 64; RESP 14; TEMP 37.1; O2SAT 99
--- NOTE | 2021-11-24 12:26 | ED.URI ---
HPI - URI/Sore Throat General Chief Complaint: Upper Respiratory Infection Stated Complaint: Sore Throat Time Seen by Provider: 11/24/21 12:20 Source: patient, RN notes reviewed and old records reviewed Mode of arrival: ambulatory Limitations: no limitations History of Present Illness HPI Narrative: 46-year-old male presents to express care with complaints of concern for strep throat and some nasal congestion and drainage since yesterday. Patient reports that 2 of his kids have been diagnosed with positive strep in the past 2 weeks. Patient denies any acute cough, no ear pain or any sinus pain or headache discomfort. Patient denies any fevers, chills or sweats or any body aches.Patient has not had COVID vaccinations or flu shot, he is a daily smoker of 1 pack per day of cigarettes for the past 30 years. Related Data Home Medications Medication Instructions Recorded Confirmed No Home Medications 11/24/21 11/24/21 Allergies Allergy/AdvReac Type Severity Reaction Status Date / Time No Known Allergies Allergy Verified 11/24/21 11:45 Review of Systems Review of Systems: CONSTITUTIONAL: Denies fever, chills, or sweats. EYES: Denies visual changes, redness, or discharge. ENT: Positive for rhinorrhea,mild nasal congestion, sore throat, no otalgia. CARDIOVASCULAR: Denies chest pain, palpitations, or edema. RESPIRATORY: Positive for cough denies dyspnea. GASTROINTESTINAL: Denies abdominal pain, nausea, vomiting, or diarrhea. GENITOURINARY: Denies dysuria or hematuria. SKIN: Denies rash or itching. MUSCULOSKELETAL: Denies back pain, joint pain, or myalgia. NEUROLOGIC: Denies headache, numbness, or weakness. PSYCHIATRIC: Denies anxiety or depression. All systems reviewed & are unremarkable except as noted in HPI and below PMFSH Past Medical History Medical History Bronchitis Kidney stones Left hand fracture Lung abnormality punctured lung due to fracture ribs Sinusitis Surgical History Surgical History History of placement of ear tubes History of tonsillectomy Family History Family History Father Heart disease Mother Liver cancer Social History Social History Smoking packs per day: 1 Smoking cigarettes per day: 20.0 Years smoked: 27 Smoking pack-years: 27.00 Smoking status: Current every day smoker Tobacco type: cigarettes Second hand tobacco smoke exposure: Yes (spouse) Alcohol intake: current Substance use: current Substance use type: marijuana Gender identity (if verbalized by the patient): Male Sexual Orientation (if Verbalized by the Patient): Straight or Heterosexual Comments At time of signature, agree with nursing past medical, surgical, social and family history. There is no relevant family history pertinent to the presenting complaint Exam Narrative: GENERAL: Well-appearing, well-nourished, and in no acute distress. HEAD: Normocephalic, atraumatic. EYES: PERRLA and EOMI. ENT: Nares red with clear rhinorrhea no epistaxis. Mucous membranes moist. TM's normal with good light reflex, throat with minimal redness no lesions or exudates, no tonsil enlargement, post nasal drainage noted. NECK: Supple. no lymphadenopathy CHEST: Clear to auscultation. No respiratory distress.SAO2 99% on room air dry cough smoker. HEART: Regular rate and rhythm. No murmur heard. Normal peripheral pulses. ABDOMEN: Soft, nontender, nondistended, normal active bowel sounds. EXTREMITIES: Normal range of motion. No edema. SKIN: Warm, dry, no rash. NEURO: No focal deficits. Alert and oriented x3. Course Course Level of Care: Express Care Visit Vital Signs Vital signs: Vital Signs Temperature 37.1 C 11/24/21 11:42 Pulse Rate 64 11/24/21 11:42 Respiratory
== END 2021-11-24 12:39 | disposition home or self-care (01) ==
PROVIDERS: Emergency Provider Registered Nurse
DX: J06.9 Acute upper respiratory infection, unspecified (principal); J02.9 Acute pharyngitis, unspecified; F17.210 Nicotine dependence, cigarettes, uncomplicated
CPT/HCPCS: 87081; 87880; 99213; G0463

== ENCOUNTER 2022-01-03 16:12 | Emergency (ER) | payer OTHER, SELFPAY ==
[2022-01-03 16:20] VITALS: BP 119/75; PULSE 61; RESP 16; TEMP 37.1; O2SAT 100
--- NOTE | 2022-01-03 16:39 | ED.NAVMDI ---
HPI - Nausea/Vomiting/Diarrhea General Chief complaint: Nausea/Vomiting/Diarrhea Stated complaint: abdo and arleenrea issues Time Seen by Provider: 01/03/22 17:11 Source: patient and RN notes reviewed Mode of arrival: ambulatory Limitations: no limitations History of Present Illness HPI Narrative: 46-year-old male presents with concern for nausea and vomiting this morning. He reports he woke up approximately 4 AM and was vomiting and having diarrhea approximately once every hour, reports at 10 AM that stopped. Reports since then he has felt fine, however he missed work. Reports he has since eaten several peanut butter and jelly sandwiches and drink milk without vomiting. He reports right now he feels fine. He denies fever, bodies, chills, sweats, nasal congestion, rhinorrhea, sore throat. He denies headache, ear pain, abdominal pain MD elicited complaint: nausea, vomiting and diarrhea Related Data Home Medications Medication Instructions Recorded Confirmed No Home Medications 11/24/21 11/24/21 Allergies Allergy/AdvReac Type Severity Reaction Status Date / Time No Known Allergies Allergy Verified 11/24/21 11:45 Review of Systems Review of Systems: CONSTITUTIONAL: Denies malaise, chills, sweats, or fever. ENT: Denies rhinorrhea, congestion, sinus pain, otalgia or sore throat. CARDIOVASCULAR: Denies chest pain, palpitations, or edema. RESPIRATORY: Denies cough or dyspnea. GASTROINTESTINAL: Denies abdominal pain, bloody, or mucous stools. Reports nausea, vomiting, diarrhea this morning GENITOURINARY: Denies dysuria or hematuria. MUSCULOSKELETAL: Denies myalgia. NEUROLOGIC: Denies headache. All systems reviewed & are unremarkable except as noted in HPI and below PMFSH Past Medical History Medical History Bronchitis Kidney stones Left hand fracture Lung abnormality punctured lung due to fracture ribs Sinusitis Surgical History Surgical History History of placement of ear tubes History of tonsillectomy Family History Family History Father Heart disease Mother Liver cancer Social History Social History Smoking packs per day: 1 Smoking cigarettes per day: 20.0 Years smoked: 27 Smoking pack-years: 27.00 Smoking status: Current every day smoker Tobacco type: cigarettes Second hand tobacco smoke exposure: Yes (spouse) Alcohol intake: current Substance use: current Substance use type: marijuana Gender identity (if verbalized by the patient): Male Sexual Orientation (if Verbalized by the Patient): Straight or Heterosexual Comments At time of signature, agree with nursing past medical, surgical, social and family history. There is no relevant family history pertinent to the presenting complaint Exam Narrative: GENERAL: Well-appearing, well-nourished, and in no acute distress. HEAD: Normocephalic, atraumatic. EYES: PERRLA, conjunctivae clear, and EOMI. ENT: Nares clear, turbinates pink, no rhinorrhea or epistaxis. Mucous membranes moist. Oropharynx without edema, erythema, or lesions. Tonsils not enlarged and without exudate. NECK: Supple. No lymphadenopathy CHEST: Speaks in full sentences. No respiratory distress. HEART: Regular rate and rhythm. ABDOMEN: Soft, flat, nondistended. No guarding, rebound tenderness, or rigid. No pulsatilla masses. Bowel sounds present in all four quadrants. No organomegaly. Negative Cartwright?s sign. No periumbilical tenderness. No Supra public tenderness or distension. Good femoral pulses bilaterally. No hernia noted. No scars or surface trauma. SKIN: Warm, dry, no rash. NEURO: Alert and oriented x3. PSYCH: Normal mood and affect Course Course Emergency Course: Patient is aware of diagnosis, understands
== END 2022-01-03 17:23 | disposition home or self-care (01) ==
PROVIDERS: Emergency Provider Nurse Practitioner
DX: R11.2 Nausea with vomiting, unspecified (principal); R19.7 Diarrhea, unspecified; F17.210 Nicotine dependence, cigarettes, uncomplicated
CPT/HCPCS: 99211; 99213; G0463

== ENCOUNTER → 2022-04-08 05:23 | Outpatient (CLI) | payer OTHER, SELFPAY ==
[2022-04-08 11:47] LABS: SARS-CoV-2 RNA PCR Negative
== END ==
PROVIDERS: PCP Emergency Medicine; Visit Provider Emergency Medicine
DX: J40 Bronchitis, not specified as acute or chronic (principal); Z20.822 Contact with and (suspected) exposure to COVID-19
CPT/HCPCS: C9803; U0003; U0005

== ENCOUNTER 2022-11-09 09:06 | Emergency (ER) | payer OTHER, SELFPAY ==
--- NOTE | ~2022-11-09 | XR_ITS ---
Clinical Indication: Cough PA and lateral views of the chest: Comparison: 09/30/2021 Findings: The lungs are clear, without evidence of focal consolidation or pleural effusion. Cardiome diastinal silhouette is within normal limits. Bones and soft tissues are unremarkable. Impression: Normal chest. Reviewed, dictated and finalized at location . Impression: Normal chest.
--- NOTE | 2022-11-09 09:17 | ED.GENADULT ---
HPI - General Adult General Chief complaint: Upper Respiratory Infection Stated complaint: Chest Cogestion/Cough Source: patient and RN notes reviewed History of Present Illness HPI narrative: 47 yo M presents to urgent care with complaints of cough, chest tightness, and SOB. Pt states he was dx with bronchitis and PNA this past May which he was medicated for. Pt states he got better but has not been 100% since. Patient states his symptoms started to worsen about a month ago and then the last 3 days resorted back to his original bronchitis and pneumonia days. Patient reports cough but states that could be normal for him. Patient reports bilateral chest tightness and bilateral upper back tightness. Denies any fevers, chills her vomiting. Denies any leg pain or swelling. Denies any chest pain or palpitations. Patient states he has been using his inhaler the last couple days without relief. Some parts of this dictation were generated by voice recognition software and may contain typographical and/or grammatical inaccuracies. Related Data Allergies Allergy/AdvReac Type Severity Reaction Status Date / Time No Known Allergies Allergy Verified 11/09/22 09:54 Review of Systems Review of Systems: Pertinent positives and pertinent negatives per HPI. [facility] Past Medical History Medical History Bronchitis Kidney stones Left hand fracture Lung abnormality punctured lung due to fracture ribs Sinusitis Surgical History Surgical History History of placement of ear tubes History of tonsillectomy Family History Family History Father Heart disease Mother Liver cancer Social History Social History Smoking packs per day: 1 Smoking cigarettes per day: 20.0 Years smoked: 27 Smoking pack-years: 27.00 Smoking status: Current every day smoker Tobacco type: cigarettes Second hand tobacco smoke exposure: Yes (spouse) Alcohol intake: current Substance use: current Substance use type: marijuana Living arrangements: with family Occupation/Education: occupation Gender identity (if verbalized by the patient): Male Sexual Orientation (if Verbalized by the Patient): Straight or Heterosexual Comments At the time of my signature, I reviewed and agree with the nursing past medical, surgical, social, and family history. There is no relevant family history pertinent to the patient complaint. Exam Narrative: GENERAL: This is a well-nourished, well-developed patient, in no apparent distress. HEAD: normocephalic, atraumatic. EYES: Sclera clear/white. Vision is grossly intact. EARS: External ears normal, auditory canals clear and without drainage. Hearing grossly intact. NOSE: External nose normal with no obvious nasal discharge, nares without redness, no rhinorrhea. THROAT: Mucous membranes moist, posterior pharynx clear. NECK: Neck supple, non-tender without lymphadenopathy, masses or thyromegaly. CARDIOVASCULAR: Regular rate and rhythm without murmurs, gallops, or rubs. RESPIRATORY: Clear to auscultation. Breath sounds equal bilaterally. No wheezes, rales, or rhonchi. Diminished bilaterally. SKIN: warm, intact with no suspicious lesions or rash, good texture and turgor. NEURO: awake, alert, and oriented to person, place and time. There were no obvious focal neurologic abnormalities. EXTREMITIES: No clubbing, cyanosis, or edema. No joint tenderness, effusion, or edema noted. BACK: Nontender without deformity or crepitance. No flank tenderness. Course Course Level of Care: Express Care Visit Vital Signs Vital signs: Vital Signs Temperature 98.1 F 11/09/22 09:21 Pulse Rate 70 11/09/22 09:21 Respiratory Rate 16 11/09/22 09:21 Blood Pressure 124/70 11/09/22 09:
[2022-11-09 09:21] VITALS: BP 124/70; PULSE 70; RESP 16; TEMP 36.7; O2SAT 98
== END 2022-11-09 10:20 | disposition home or self-care (01) ==
PROVIDERS: Emergency Provider Nurse Practitioner Family
DX: J40 Bronchitis, not specified as acute or chronic (principal); F17.210 Nicotine dependence, cigarettes, uncomplicated; F12.90 Cannabis use, unspecified, uncomplicated
CPT/HCPCS: 71046; 99213; G0463

== ENCOUNTER 2023-05-22 08:15 | Emergency (ER) | payer OTHER, SELFPAY ==
[2023-05-22 08:20] VITALS: BP 122/82; PULSE 76; RESP 20; TEMP 36.9; O2SAT 99
--- NOTE | 2023-05-22 08:28 | ED.URI ---
HPI - URI/Sore Throat General Chief Complaint: Upper Respiratory Infection Stated Complaint: head/congestion/sob Time Seen by Provider: 05/22/23 08:44 Source: patient and RN notes reviewed Mode of arrival: ambulatory Limitations: no limitations History of Present Illness HPI Narrative: 48-year-old male presents with concern for cough, chest congestion, head congestion and nasal drainage that started yesterday. He reports general malaise. He denies fever, sore throat. He has not taken any medication for his symptoms. He is a smoker MD elicited complaint: cough and rhinorrhea Related Data Allergies Allergy/AdvReac Type Severity Reaction Status Date / Time No Known Allergies Allergy Verified 05/22/23 08:33 Review of Systems Review of Systems: CONSTITUTIONAL: Reports malaise. Denies chills, sweats, or fever. EYES: Denies visual changes, redness, or discharge. ENT: Reports rhinorrhea, congestion. Denies sinus pain, otalgia and sore throat. CARDIOVASCULAR: Denies chest pain, palpitations, or edema. RESPIRATORY: Reports cough, chest congestion. Denies dyspnea. GASTROINTESTINAL: Denies abdominal pain, nausea, vomiting, diarrhea SKIN: Denies rash or itching. MUSCULOSKELETAL: Reports myalgia. NEUROLOGIC: Denies headache. All systems reviewed & are unremarkable except as noted in HPI and below PMFSH Past Medical History Medical History Bronchitis Kidney stones Left hand fracture Lung abnormality punctured lung due to fracture ribs Sinusitis Surgical History Surgical History History of placement of ear tubes History of tonsillectomy Family History Family History Father Heart disease Mother Liver cancer Social History Social History Smoking packs per day: 1 Smoking cigarettes per day: 20.0 Years smoked: 27 Smoking pack-years: 27.00 Smoking status: Current every day smoker Tobacco type: cigarettes Second hand tobacco smoke exposure: Yes (spouse) Alcohol intake: current Substance use: current Substance use type: marijuana Living arrangements: with family Occupation/Education: occupation Gender identity (if verbalized by the patient): Male Sexual Orientation (if Verbalized by the Patient): Straight or Heterosexual Comments At time of signature, agree with nursing past medical, surgical, social and family history. There is no relevant family history pertinent to the presenting complaint Exam Narrative: GENERAL: Well-appearing, well-nourished, and in no acute distress. HEAD: Normocephalic EYES: PERRLA, conjunctivae clear ENT: Nares clear, clear discharge. Mucous membranes moist. TM pearly chatterjee with dull light reflex bilaterally; no tragal tenderness. Oropharynx not erythematous without lesions. Tonsils not enlarged and without exudate, no drooling, no hoarseness, no trismus, uvula midline. NECK: Supple. No lymphadenopathy CHEST: Clear to auscultation, breath sounds equal. No wheezing, rhonchi, rales, or stridor. No respiratory distress, speaks in full sentences. HEART: Regular rate and rhythm. No murmur heard. SKIN: Warm, dry, no rash. NEURO: Alert and oriented x3. PSYCH: Normal mood and affect Course Course Emergency Course: Patient is aware of diagnosis, understands and agrees to treatment plan. Anticipatory guidance given. Patient agrees to follow-up as directed and is aware of reasons to seek care at the emergency department. Portions of this record may have been created with voice recognition software Level of Care: Express Care Visit Vital Signs Vital signs: Vital Signs Temperature 98.5 F 05/22/23 08:20 Pulse Rate 76 05/22/23 08:20 Respiratory Rate 20 05/22/23 08:20 Blood Pressure 122/82 05/22/23 08:20
== END 2023-05-22 09:34 | disposition home or self-care (01) ==
PROVIDERS: Emergency Provider Nurse Practitioner
DX: J06.9 Acute upper respiratory infection, unspecified (principal); Z20.822 Contact with and (suspected) exposure to COVID-19; F17.210 Nicotine dependence, cigarettes, uncomplicated; F12.90 Cannabis use, unspecified, uncomplicated
CPT/HCPCS: 87426; 87804; 99213; C9803; G0463

== ENCOUNTER 2024-05-22 10:41 | Emergency (ER) | payer OTHER, SELFPAY ==
[2024-05-22 10:51] VITALS: BP 124/54; PULSE 70; RESP 16; TEMP 37.1; O2SAT 99
--- NOTE | 2024-05-22 11:43 | ED_ITS ---
HPI - General Adult General Chief complaint: Unspecified Stated complaint: Pain in Groin/Congestion Time Seen by Provider: 05/22/24 11:30 Source: patient, RN notes reviewed and old records reviewed Mode of arrival: ambulatory Limitations: no limitations History of Present Illness HPI narrative: 49 year old male presents to [facility] care with complaints of 2 weeks of productive cough of yellow phlegm with congestion and stated nasal drainage which is clear, denies any fevers, Patient also reports that since Monday he has had some left groin pain that at times radiates to upper left leg and left lower abdomen. He states that when he wakes up he feels fine but after climbing stairs at work he has the intermittent pain denies any bulging in groin no testicle pain or any urinary symptoms. Patient reports no specific injury. MD complaint: left groin discomfort 6 days, 2 weeks cough and congestion Onset (ago): day(s) (6 days groin, 2 weeks cough and congestion) Severity scale (1-10): 2 Quality: aching Pain Consistency: intermittent Treatments prior to arrival: NSAID Related Data Allergies Allergy/AdvReac Type Severity Reaction Status Date / Time No Known Allergies Allergy Verified 05/22/24 11:14 Review of Systems Review of Systems: CONSTITUTIONAL: Denies fever, chills, or sweats. EYES: Denies visual changes, redness, or discharge. ENT: Reports rhinorrhea, congestion, no sore throat, or otalgia. CARDIOVASCULAR: Denies chest pain, palpitations, or edema. RESPIRATORY: Reports productive cough denies dyspnea. GASTROINTESTINAL: Denies abdominal pain, nausea, vomiting, or diarrhea. reports intermittent right groin pain radiates some to left lower abdomen and left upper inner leg GENITOURINARY: Denies dysuria or hematuria. SKIN: Denies rash or itching. MUSCULOSKELETAL: Denies back pain, joint pain, or myalgia. NEUROLOGIC: Denies headache, numbness, or weakness. PSYCHIATRIC: Reports history of anxiety or depression. All systems reviewed & are unremarkable except as noted in HPI and below PMFSH Past Medical History Medical History Bronchitis Kidney stones Left hand fracture Lung abnormality punctured lung due to fracture ribs Sinusitis Surgical History Surgical History History of placement of ear tubes History of tonsillectomy Family History Family History Father Heart disease Mother Liver cancer Social History Social History Smoking packs per day: 1 Smoking cigarettes per day: 20.0 Years smoked: 27 Smoking pack-years: 27.00 Smoking status: Current every day smoker Tobacco type: cigarettes Second hand tobacco smoke exposure: Yes (spouse) Alcohol intake: current Substance use: current Substance use type: marijuana Living arrangements: with family Occupation/Education: occupation Gender identity (if verbalized by the patient): Male Sexual Orientation (if Verbalized by the Patient): Straight or Heterosexual Comments At time of signature, agree with nursing past medical, surgical, social and family history. There is no relevant family history pertinent to the presenting complaint Exam Narrative: GENERAL: Well-appearing, well-nourished, and in no acute distress. HEAD: Normocephalic, atraumatic. EYES: PERRLA and EOMI. ENT: Nares clear, no rhinorrhea or epistaxis. Mucous membranes moist. TM's normal throat red with no tonsils present or any exudate NECK: Supple.no lymphadenopathy CHEST: Coarse to auscultation. No respiratory distress productive cough SAO2 99% on room air. HEART: Regular rate and rhythm. No murmur heard. Normal peripheral pulses. ABDOMEN: Soft, nontender, nondistended, normal active bowel sounds.some palpable left groin tenderness with no bulging, no radiation into testicles, no hernia noted on examination of inguinal canal EXTREMITIES: Normal range of motion. No edema. SKIN: Warm, dry, no rash. NEURO: No focal deficits. Alert and oriented x3. Course Course Emergency Course: Patient is aware of diagnosis, understands and agrees to treatment plan.? Anticipatory guidance given.? Patient agrees to follow-up as directed and is aware of reasons to seek care at the emergency department. Portions of this record may have been created with voice recognition software Level of Care: Express Care Visit Vital Signs Vital signs: Vital Signs Temperature 37.1 C 05/22/24 10:51 Pulse Rate 70 05/22/24 10:51 Respiratory Rate 16 05/22/24 10:51 Blood Pressure 124/54 L 05/22/24 10:51 Pulse Oximetry 99 05/22/24 10:51 Oxygen Delivery Room Air 05/22/24 10:51 Temperature 37.1 C 05/22/24 10:51 Pulse Rate 70 05/22/24 10:51 Respiratory Rate 16 05/22/24 10:51 Blood Pressure 124/54 L 05/22/24 10:51 Pulse Oximetry 99 05/22/24 10:51 Oxygen Delivery Room Air 05/22/24 10:51 Reviewed Medical Decision Making MDM Narrative Medical decision making narrative: Exam findings and imaging show no acute concerns or changes; patient is non- toxic appearing and is in no distress.? Patient is appropriate for outpatient treatment and follow-up Differential Diagnosis Differential Diagnosis: URI, cough, left groin pain, sinusitis, muscle strain left groin Medical Records Medical records reviewed: Yes I reviewed the external patient's medical records. Vital Signs Vital Signs: Vital Signs Temperature 37.1 C 05/22/24 10:51 Pulse Rate 70 05/22/24 10:51 Respiratory Rate 16 05/22/24 10:51 Blood Pressure 124/54 L 05/22/24 10:51 Pulse Oximetry 99 05/22/24 10:51 Oxygen Delivery Room Air 05/22/24 10:51 Temperature 37.1 C 05/22/24 10:51 Pulse Rate 70 05/22/24 10:51 Respiratory Rate 16 05/22/24 10:51 Blood Pressure 124/54 L 05/22/24 10:51 Pulse Oximetry 99 05/22/24 10:51 Oxygen Delivery Room Air 05/22/24 10:51 reviewed Critical Care Time Critical Care Time Critical Care Time: No Discharge Plan Discharge Clinical Impression: Acute cough Sinusitis Qualifiers: Sinusitis location: pansinusitis Chronicity: acute Recurrence: non-recurrent Qualified Code(s): J01.40 - Acute pansinusitis, unspecified Strain of left inguinal muscle Qualifiers: Encounter type: initial encounter Qualified Code(s): S39.013A - Strain of muscle, fascia and tendon of pelvis, initial encounter Patient Disposition: Home, Self-Care Condition: Stable Instructions: Antibiotic Form Additional Instructions: Tylenol for mild discomfort Ibuprofen regularly for the next 2-3 days 400 mg with food 3 times daily May use ice to the left groin 20 minutes every 4 hours comfort measures Avoid heavy lifting for the next 2 days Increase fluids especially juices and water [id number]-[id number] cough and cold medicine of your choice for your symptoms Steroids as directed--take with food heat to the face 20-30 minutes 4-6 times a day for pain Salt water gargles, throat lozenges or throat sprays as desired Antibiotic as directed--finished the medication Follow up ED if increased symptoms or any testicle pain Prescriptions: New amoxicillin-pot clavulanate 875-125 mg tablet 1 tablet PO Q12H Qty: 20 0RF prednisone 20 mg tablet 20 mg PO BID Qty: 10 0RF Follow-up/Referrals: PHYSICIAN,GANG PUSHER [Primary Care Provider] - Stand Alone Forms: Work/School Release IP Time of Disposition: 12:04 Quality [place] Coma Scale Eyes: Open Verbal: Oriented and Alert Motor: Follows Commands Gini Coma Total Score: 15
== END 2024-05-22 12:14 | disposition home or self-care (01) ==
PROVIDERS: Emergency Provider Registered Nurse
DX: R05.1 Acute cough (principal); J01.40 Acute pansinusitis, unspecified; S39.011A Strain of muscle, fascia and tendon of abdomen, initial encounter; X58.XXXA Exposure to other specified factors, initial encounter; F17.210 Nicotine dependence, cigarettes, uncomplicated
CPT/HCPCS: 99213; G0463

== ENCOUNTER 2024-08-22 18:21 | Emergency (ER) | payer OTHER, SELFPAY ==
--- OUTSIDE RECORDS SUMMARY | 2024-08-22 18:24 | XMS_ITS | CONTINUITY OF CARE DOCUMENT ---
Author Name nilesh galloway Address Unknown Organization [facility] Address [address] [place] [address] [address] [place] [address] Phone [phone] Care Team Providers Care Metal Furniture Assembly Supervisor Name Role Phone Alisha Woodard MD Unavailable [phone] MAIK GENAO MD Unavailable [phone] MAIK GENAO MD Unavailable [phone] PROBLEMS Condition Status Date Provider Notes Cardiology examination active Alisha sanchez MD Palpitations active Alisha Woodard MD Chest pain-type to be determined active Alyx Woodard MD Shortness of breath with exertion active Ricardo Woodard MD Family History Coronary Hear t Disease male < 55: active Alisha Woodard MD Family History Coronary Hear t Disease female < 65: active Alisha Woodard MD Tobacco use active Alsiha Woodard MD ENCOUNTERS Date Type Provider Location Encounter Diag nosis - In-person encounter Office Visit Alisha Woodard MD [facility] Cardiology examinationPalpitationsChest pain-type to be determinedShortness of breath with exertionFamily History Coronary Heart Disease male < 55:Family History Coronary Heart Disease female < 65:Tobacco use VITAL SIGNS Date Observation Value Provider Body Mass Index (Ratio) 22.73 kg/m2 Marc Monge blood pressure, diastolic 84 mm[Hg] Li nkLogic blood pressure, systolic 132 mm[Hg] Batsheva kLogic blood pressure, cuff size large Ke lillie Lloyd blood pressure, diastolic 84 mm[Hg] Daron rroralia Mcbrideer blood pressure, systolic 132 mm[Hg] Amy Lloyd oxygen saturation, oximetry 98 % Rena Lloyd respiratory rate E&M 14 /min Rena buenrostroeldnatalia pulse rate 72 /min Rena Reid lder weight E&M 163 [lb_av] Rena Reid lder height E&M 71 [in_i] Rena Reid lder SOCIAL HISTORY Date Observation Value Provider number of grandchildren Alisha Woodard MD smoking/tobacco cess ation, patient education and counseling yes Alisha Woodard MD social history E&M S moking History: P atient currently smokes every day. P atient has been counseled to quit. Alisha Woodard MD social history reviewed E&M revi ewed - no changes required Alisha Woodard MD number of years as a smoker 30 a Rena Prema smoking history, tot al pack/day 1 ppd Rena Tuckerleonyandellandon cigarette use yes Rena Tuckerleonyandel landon smoking status Current every day smoker K erroralia Tuckertanyajemlandon FAMILY HISTORY Family Member Condition Mother [place] female <65 Father [place] male <55 Mother Family History Coron jerad Heart Disease female < 65: Father Family History Coron jerad Heart Disease male < 55: INSURANCE PROVIDERS Payer name Policy type / Coverage type [place] red democrat [place] SHIRA MEDICAID (2) Medicaid [id number] ADVANCE DIRECTIVES Name Date DISCUSSED - NO DECISION MADE TREATMENT PLAN Date Name Performer [id number],W, H igh palpitations burden over the last month. EKG today shows NSR. Will check a 2 week tele montor to assess for arrhythmias. Ezra Nelsont [id number],W, S xs have been present for much of the last month. Risk factors for CAD include smoking history and family hx of sudden cardiac in father. Will do an ischemic workup with an echo to evaluate his LVF and wall motion, and a routine stress test to evaluate for ischemia. Ezra Nelsont [id number],W, A s above. Ezra Nelsont [id number],C, T he Patient was reencouraged to stop smoking. Alisha Woodard MD Cardiology: H igh palpitations burden over the last month. EKG today shows NSR. Will check a 2 week tele montor to assess for arrhythmias. Ezra Monge Cardiology: S xs have been present for much of the last month. Risk factors for CAD include smoking history and family hx of sudden cardiac in father. Will do an ischemic workup with an echo to evaluate his LVF and wall motion, and a routine stress test to evaluate for ischemia. Ezra Monge Cardiology: A s above. Ezra Monge Cardiology: T he Patient was reencouraged to stop smoking. Alisha Woodard MD Date Name Stress Routine Stress Regadenoson Monitor - Telemetry (Mobile Cardiac) Complete Echo HISTORY OF PROCEDURES Procedure Date Procedure Name Provider Procedure Notes S tatus EKG Alisha Woodard MD complet ed
--- OUTSIDE RECORDS SUMMARY | 2024-08-22 18:25 | XMS_ITS | CONTINUITY OF CARE DOCUMENT ---
Author Name nilesh galloway Address Unknown Organization [place] [facility] Address [address] [place] [address] [address] [place] [address] Phone [phone] Care Team Providers Care National Sales Representative Name Role Phone Alisha Woodard MD Unavailable [phone] MAIK GENAO MD Unavailable [phone] MAIK GENAO MD Unavailable [phone] PROBLEMS Condition Status Date Provider Notes Cardiology [...] active Alisha Woodard MD Tobacco use active Alisha Woodard MD ENCOUNTERS Date Type Provider Location Encounter Diag nosis - In-person encounter Office Visit Alisha Woodard MD [facility] Cardiology examinationPalpitationsChest pain-type to be determinedShortness [...] Tuckertanyajemlandon FAMILY HISTORY Family Member Condition Mother [place] female <65 Father ND male <55 Mother Family History Coron jerad Heart Disease female < 65: Father Family History Coron jerad Heart Disease male < 55: INSURANCE PROVIDERS Payer name Policy type / Coverage type [place] red democrat [place] SHIRA MEDICAID (2) Medicaid [id number] ADVANCE DIRECTIVES Name Date DISCUSSED - NO DECISION MADE TREATMENT PLAN Date Name Performer [id number],W, H igh palpitations burden over the last month. EKG today shows NSR. Will check a 2 week tele montor to assess for arrhythmias. Ezra Nelsont [id number],W, S xs have been present for much of the last month. Risk factors for CAD include smoking history and family hx of sudden cardiac in father. Will do an ischemic workup with an echo to evaluate his LVF and wall motion, and a routine stress test to evaluate for ischemia. Ezra Nelsont [id number],W, A s above. Ezra Nelsont [id number],C, T he Patient was reencouraged to stop [...]
[2024-08-22 18:26] VITALS: BP 112/86; PULSE 88; RESP 20; TEMP 37.1; O2SAT 99
--- NOTE | 2024-08-22 18:28 | ED.URI ---
HPI - URI/Sore Throat General Chief Complaint: Upper Respiratory Infection Stated Complaint: flu symptoms Source: patient and RN notes reviewed Mode of arrival: ambulatory Limitations: no limitations History of Present Illness HPI Narrative: 49 y/o male presented for c/o body aches, subjective fever and chills, headache. Onset yesterday. Denies increase in cough from baseline, sob wheezing, n/v/d. Taking Tylenol. Smokes 1ppd. MD elicited complaint: cough Related Data Allergies Allergy/AdvReac Type Severity Reaction Status Date / Time No Known Allergies Allergy Verified 08/22/24 18:30 Review of Systems Review of Systems: CONSTITUTIONAL: Endorses malaise, chills, sweats, fever EYES: Denies visual changes, redness, or discharge ENT:denies rhinorrhea, congestion, sinus pain, otalgia, sore throat CARDIOVASCULAR: Denies chest pain, palpitations, edema RESPIRATORY: Reports cough Denies dyspnea GASTROINTESTINAL: Denies abdominal pain, nausea, vomiting, diarrhea MUSCULOSKELETAL: Endorses myalgia NEUROLOGIC: Denies headache PMFSH Past Medical History Medical History Kidney stones Lung abnormality punctured lung due to fracture ribs Bronchitis Sinusitis Left hand fracture Surgical History Surgical History History of tonsillectomy History of placement of ear tubes Family History Family History Father Heart disease Mother Liver cancer Social History Social History Smoking packs per day: 1 Smoking cigarettes per day: 20.0 Years smoked: 27 Smoking pack-years: 27.00 Smoking status: Current every day smoker Tobacco type: cigarettes Second hand tobacco smoke exposure: Yes (spouse) Alcohol intake: current Substance use: current Substance use type: marijuana Living arrangements: with family Occupation/Education: occupation Gender identity (if verbalized by the patient): Male Sexual Orientation (if Verbalized by the Patient): Straight or Heterosexual Exam Narrative: GENERAL: mildly Ill-appearing, nontoxic no acute distress. EYES: PERRLA, conjunctivae clear ENT: Mucous membranes moist. TMs pearly chatterjee with dull light reflex bilaterally; no tragal tenderness. Oropharynx erythematous without lesions or exudate, no drooling, no hoarseness, no trismus, uvula midline. No tripod positioning, muffled voice, soft palate or pharyngeal wall bulging NECK: Supple. No lymphadenopathy CHEST: Clear and diminished to auscultation, breath sounds equal. No wheezing, rhonchi, rales, or stridor. No respiratory distress, speaks in full sentences. HEART: Regular rate and rhythm. No murmur heard. SKIN: Warm, dry, no rash. NEURO: Alert and oriented x3. PSYCH: Normal mood and affect Course Course Emergency Course: Patient is aware of diagnosis, understands and agrees to treatment plan. Anticipatory guidance given. Patient agrees to follow-up as directed and is aware of reasons to seek care at the emergency department. Portions of this record may have been created with voice recognition software Level of Care: Express Care Visit Vital Signs Vital signs: Vital Signs Temperature 98.7 F 08/22/24 18:26 Pulse Rate 88 08/22/24 18:26 Respiratory Rate 20 08/22/24 18:26 Blood Pressure 112/86 08/22/24 18:26 Pulse Oximetry 99 08/22/24 18:26 Oxygen Delivery Room Air 08/22/24 18:26 Temperature 98.7 F 08/22/24 18:26 Pulse Rate 88 08/22/24 18:26 Respiratory Rate 20 08/22/24 18:26 Blood Pressure 112/86 08/22/24 18:26 Pulse Oximetry 99 08/22/24 18:26 Oxygen Delivery Room Air 08/22/24 18:26 reviewed MDM - URI/Sore Throat MDM Narrative Medical decision making narrative: Negative flu and COVID. Discussed physical exam findings. Advised supportive measures and signs/symptoms to go to the ER. Pt is appropriate for outpt treatment and f/u. Differential Diagnosis Differential diagnosis: Likely upper respiratory infection, sinusitis and viral infection Discharge Plan Discharge Clinical Impression: Viral infection Patient Disposition: Home, Self-Care Condition: Stable Instructions: Antibiotic Form, Viral Syndrome (ED) Additional Instructions: Flu and COVID negative. Recommendations: Flonase spray and Zyrtec (or Claritin/Elsi) if you have nasal congestion over the counter Cough syrup may cause drowsiness; avoid driving or take it at night time. Tylenol 1000mg every 8 hours as needed for pain Symptomatic treatment includes: rest, fluids, and increase humidity of the air at home. Follow up with your primary care provider in 1 week. Go to the ER for worsening symptoms or concerns. Patient Language: [place] Prescriptions: New methylprednisolone [Medrol (Zhen)] 4 mg tablets,dose pack See Rx Instructions .ROUTE .COMPLEX Qty: 21 0RF Rx Instructions: orally per package directions No Action amoxicillin-pot clavulanate 875-125 mg tablet 1 tablet PO Q12H Qty: 20 0RF prednisone 20 mg tablet 20 mg PO BID Qty: 10 0RF Follow-up/Referrals: PHYSICIAN,DIAL POLISHER [Primary Care Provider] - Stand Alone Forms: Work/School Release IP Time of Disposition: 18:48
[2024-08-22 18:48] LABS: EDCOVIDSCREEN Negative (Negative); EDINFLUASCREEN Negative (Negative); EDINFLUBSCREEN Negative (Negative)
== END 2024-08-22 18:52 | disposition home or self-care (01) ==
PROVIDERS: Emergency Provider Nurse Practitioner Family
DX: B34.9 Viral infection, unspecified (principal); Z20.822 Contact with and (suspected) exposure to COVID-19; F17.210 Nicotine dependence, cigarettes, uncomplicated; F12.90 Cannabis use, unspecified, uncomplicated
CPT/HCPCS: 87426; 87804; 99213; G0463

== ENCOUNTER 2024-08-29 19:17 | Emergency (ER) | payer OTHER, SELFPAY ==
--- OUTSIDE RECORDS SUMMARY | 2024-08-29 19:20 | XMS_ITS | CONTINUITY OF CARE DOCUMENT ---
Author Name nilesh galloway Address Unknown Organization [facility] Address [address] [place] [address] [address] [place] [address] Phone [phone] Care Team Providers Care Foiling Machine Operator Name Role Phone Alisha Woodard MD Unavailable MAIK GENAO MD Unavailable [phone] MAIK GENAO MD Unavailable [phone] PROBLEMS Condition Status Date Provider Notes Cardiology [...] In-person encounter Office Visit Alisha Woodard MD [facility] Cardiology examinationPalpitationsChest pain-type to be determinedShortness [...] Tuckertanyajemlandon FAMILY HISTORY Family Member Condition Mother IN female <65 Father IN male <55 Mother Family History Coron jerad Heart Disease female < 65: Father Family History Coron jerad Heart Disease male < 55: INSURANCE PROVIDERS Payer name Policy type / Coverage type [place] red libertarian [place] SHIRA MEDICAID (2) Medicaid [id number] ADVANCE DIRECTIVES Name Date DISCUSSED - NO DECISION MADE TREATMENT PLAN Date Name Performer [id number],W, H igh palpitations burden over the last month. EKG today shows NSR. Will check a 2 week tele montor to assess for arrhythmias. Ezra Nelsont [id number],W, S xs have been present for much of the last month. Risk factors for CAD include smoking history and family hx of sudden cardiac in father. Will do an ischemic workup with an echo to evaluate his LVF and wall motion, and a routine stress test to evaluate for ischemia. Ezra Nelsont [id number],W, A s above. Ezra Nelsont [id number],C, T he Patient was reencouraged to stop [...]
--- OUTSIDE RECORDS SUMMARY | 2024-08-29 19:21 | XMS_ITS | CONTINUITY OF CARE DOCUMENT ---
Author Name nilesh galloway Address Unknown Organization [facility] Address [address] [place] [address] [address] [place] [address] Phone [phone] Care Team Providers Care Assistant Pressman Name Role Phone Alisha Woodard MD Unavailable MAIK GENAO MD Unavailable [phone] MAIK GENAO MD Unavailable [phone] PROBLEMS Condition Status Date Provider Notes Cardiology [...] In-person encounter Office Visit Alisha Woodard MD [facility] Cardiology examinationPalpitationsChest pain-type to be determinedShortness [...] Tuckertanyajemlandon FAMILY HISTORY Family Member Condition Mother MS female <65 Father MS male <55 Mother Family History Coron jerad Heart Disease female < 65: Father Family History Coron jerad Heart Disease male < 55: INSURANCE PROVIDERS Payer name Policy type / Coverage type [place] red constitution party ID SHIRA MEDICAID (2) Medicaid [id number] ADVANCE DIRECTIVES Name Date DISCUSSED - NO DECISION MADE TREATMENT PLAN Date Name Performer [id number],W, H igh palpitations burden over the last month. EKG today shows NSR. Will check a 2 week tele montor to assess for arrhythmias. Ezra Nelsont [id number],W, S xs have been present for much of the last month. Risk factors for CAD include smoking history and family hx of sudden cardiac in father. Will do an ischemic workup with an echo to evaluate his LVF and wall motion, and a routine stress test to evaluate for ischemia. Ezra Nelsont [id number],W, A s above. Ezra Nelsont [id number],C, T he Patient was reencouraged to stop [...]
== END 2024-08-29 19:33 | disposition left against medical advice (07) ==
PROVIDERS: Emergency Provider Nurse Practitioner Family
DX: Z53.21 Procedure and treatment not carried out due to patient leaving prior to being seen by health care provider (principal)
CPT/HCPCS: 99199

== ENCOUNTER 2025-02-23 18:03 | Emergency (ER) | payer OTHER, SELFPAY ==
[2025-02-23 18:07] VITALS: BP 117/80; PULSE 87; RESP 16; TEMP 37; O2SAT 98
[2025-02-23] MEDS: TETANUS,DIPHTHERIA,AC PERTUSSIS ADULT (0.5 ML) BOOSTRIX IM (18:19)
--- NOTE | 2025-02-23 18:27 | ED_ITS ---
HPI - General Adult General Chief complaint: Wound/Laceration Stated complaint: Stepped on Nail/Right Foot Source: patient Mode of arrival: ambulatory Limitations: no limitations History of Present Illness HPI narrative: Patient presents for evaluation of a puncture wound to the right foot that occurred at noon today. He was wearing rubber soled tennis shoes and stepped on a nail. It did break the skin. He rates his current pain as 5/10. He is able to ambulate and bear weight. He denies any fevers, chills or purulent drainage. He is not diabetic. He smokes about 1 ppd. Related Data Allergies Allergy/AdvReac Type Severity Reaction Status Date / Time No Known Allergies Allergy Verified 02/23/25 18:15 Review of Systems Review of Systems: CONSTITUTIONAL: Denies fever, chills, or sweats. EYES: Denies visual changes, redness, or discharge. ENT: Denies rhinorrhea, congestion, sore throat, or otalgia. CARDIOVASCULAR: Denies chest pain, palpitations, or edema. RESPIRATORY: Denies cough or dyspnea. GASTROINTESTINAL: Denies abdominal pain, nausea, vomiting, or diarrhea. GENITOURINARY: Denies dysuria or hematuria. SKIN: Reports puncture wound to plantar aspect of the right foot MUSCULOSKELETAL: Reports right foot pain. Denies pain elsewhere NEUROLOGIC: Denies headache, numbness, dizziness, or weakness. PSYCHIATRIC: Denies anxiety or depression. [facility] Past Medical History Medical History Kidney stones Lung abnormality punctured lung due to fracture ribs Bronchitis Sinusitis Left hand fracture Surgical History Surgical History History of tonsillectomy History of placement of ear tubes Family History Family History Father Heart disease Mother Liver cancer Social History Social History Smoking packs per day: 1 Smoking cigarettes per day: 20.0 Years smoked: 27 Smoking pack-years: 27.00 Smoking status: Current every day smoker Tobacco type: cigarettes Second hand tobacco smoke exposure: Yes (spouse) Alcohol intake: current Substance use: current Substance use type: marijuana Living arrangements: with family Occupation/Education: occupation Gender identity (if verbalized by the patient): Male Sexual Orientation (if Verbalized by the Patient): Straight or Heterosexual Exam Narrative: GENERAL: Well-appearing, well-nourished, and in no acute distress. HEAD: Normocephalic, atraumatic. EYES: PERRLA and EOMI. ENT: Nares clear, no rhinorrhea or epistaxis. Mucous membranes moist. Oropharynx without tonsillar hypertrophy exudate or other lesions. Bilateral TMs pearly chatterjee nonbulging NECK: Supple. No adenopathy or masses. No carotid bruits or JVD CHEST: Clear to auscultation. No respiratory distress. No wheezes rales or rhonchi HEART: Regular rate and rhythm. No murmur heard. Normal peripheral pulses. ABDOMEN: Soft, nontender, nondistended, normal active bowel sounds. EXTREMITIES: Normal range of motion. No edema. SKIN: There is a puncture wound to the plantar aspect of the right foot. There is no active drainage or surrounding erythema NEURO: No focal deficits. Alert and oriented x3. PSYCH: Normal mood and affect. Course Course Emergency Course: This is a 50-year-old male who presented for evaluation of a puncture wound to the right foot. Wound was thoroughly irrigated with hydrogen peroxide, wound cleanser and saline. Patient tolerated well. He is updated on tetanus. Will discharge with Levaquin and cephalexin. Advised he follow up outpatient for further treatment and go to the emergency department for worsening symptoms. Patient in agreement plan of care Level of Care: Express Care Visit Vital Signs Vital signs: Vital Signs Temperature 37.0 C 02/23/25 18:07 Pulse Rate 87 02/23/25 18:07 Respiratory Rate 16 02/23/25 18:07 Blood Pressure 117/80 02/23/25 18:07 Pulse Oximetry 98 02/23/25 18:07 Oxygen Delivery Room Air 02/23/25 18:07 Temperature 37.0 C 02/23/25 18:07 Pulse Rate 87 02/23/25 18:07 Respiratory Rate 16 02/23/25 18:07 Blood Pressure 117/80 02/23/25 18:07 Pulse Oximetry 98 02/23/25 18:07 Oxygen Delivery Room Air 02/23/25 18:07 Medical Decision Making Vital Signs Vital Signs: Vital Signs Temperature 37.0 C 02/23/25 18:07 Pulse Rate 87 02/23/25 18:07 Respiratory Rate 16 02/23/25 18:07 Blood Pressure 117/80 02/23/25 18:07 Pulse Oximetry 98 02/23/25 18:07 Oxygen Delivery Room Air 02/23/25 18:07 Temperature 37.0 C 02/23/25 18:07 Pulse Rate 87 02/23/25 18:07 Respiratory Rate 16 02/23/25 18:07 Blood Pressure 117/80 02/23/25 18:07 Pulse Oximetry 98 02/23/25 18:07 Oxygen Delivery Room Air 02/23/25 18:07 Discharge Plan Discharge Clinical Impression: Puncture wound of foot, right Patient Disposition: Home Condition: Stable Instructions: Antibiotic Form, Puncture Wound (DC) Additional Instructions: Wash area 3 times per day with antibacterial soap and water Pat dry Apply Neosporin Take antibiotics as directed Go to the emergency department for fever or signs of infection Patient Language: French Prescriptions: New levofloxacin 750 mg tablet 750 mg PO DAILY Qty: 10 0RF cephalexin 500 mg capsule 500 mg PO Q6H Qty: 40 0RF Follow-up/Referrals: Malachi Payan MD [Physician] - Time of Disposition: 18:23
== END 2025-02-23 18:35 | disposition home or self-care (01) ==
PROVIDERS: Emergency Provider Nurse Practitioner
DX: S91.331A Puncture wound without foreign body, right foot, initial encounter (principal); W45.0XXA Nail entering through skin, initial encounter; Z23 Encounter for immunization; F17.210 Nicotine dependence, cigarettes, uncomplicated
CPT/HCPCS: 90471; 90715; 99213; G0463